=== PATIENT | male | born 2000 | race Caucasian/White ===

== ENCOUNTER → 2020-03-06 | Outpatient (CLI) | payer OTHER ==
[~2020-03-06] MED LIST: CODACEE120 PO; IBUP400 PO
== END | disposition home or self-care (01) ==
LOC: LAB SHORT 10:14 → PLD 10:14
DX: J02.9 Acute pharyngitis, unspecified (principal)
CPT/HCPCS: 87081; 87147

== ENCOUNTER 2020-12-23 00:38 | Emergency (ER) | payer BC, OTHER ==
[~2020-12-23] VITALS: Ht 180.3 cm; Wt 61.2 kg
[2020-12-23] MEDS ORDERED: ALBU90OI INH (02:09)
== END 2020-12-23 02:18 | disposition home or self-care (01) ==
LOC: ER 00:38
DX: U07.1 COVID-19 (principal); F17.290 Nicotine dependence, other tobacco product, uncomplicated; Z88.0 Allergy status to penicillin
CPT/HCPCS: 99284

== ENCOUNTER 2024-01-08 11:22 | Emergency (ER) | payer OTHER, BC ==
[~2024-01-08] VITALS: Ht 177.8 cm; Wt 54.4 kg
[~2024-01-08 11:22] MED LIST changes: +ALBU90OI INH
[2024-01-08 11:28] VITALS: BP 149/100
[2024-01-08] MEDS ORDERED: CYCL10 PO (11:58)
[2024-01-08] MEDS ORDERED: Diphth,Pertuss(Acell),Tet Vac 0.5 ML VIAL IM ONE (12:00)
== END 2024-01-08 12:25 | disposition home or self-care (01) ==
LOC: ER 11:22
DX: M54.50 Low back pain, unspecified (principal); R04.0 Epistaxis; V89.2XXA Person injured in unspecified motor-vehicle accident, traffic, initial encounter; F17.290 Nicotine dependence, other tobacco product, uncomplicated; Z88.0 Allergy status to penicillin
CPT/HCPCS: 90471; 99283-25